=== PATIENT | male | born 1985 | race Two or more races ===

== ENCOUNTER 2019-04-28 20:22 | Emergency (ER) | payer OTHER ==
[~2019-04-28] VITALS: Ht 172.7 cm; Wt 106.6 kg
[2019-04-28 20:34] VITALS: Ht 172.7 cm; Wt 106.6 kg
[2019-04-28 22:20] VITALS: BP 139/86
== END 2019-04-28 22:20 | disposition home or self-care (01) ==
LOC: ED 20:22
DX: S92.352A Displaced fracture of fifth metatarsal bone, left foot, initial encounter for closed fracture (principal); S60.511A Abrasion of right hand, initial encounter; W18.30XA Fall on same level, unspecified, initial encounter; Y93.89 Activity, other specified; Y92.89 Other specified places as the place of occurrence of the external cause; Y99.8 Other external cause status
CPT/HCPCS: 90715